=== PATIENT | male | born 1975 | race Two or more races ===

== ENCOUNTER → 2018-06-24 | Outpatient (CLI) | payer OTHER | END | disposition home or self-care (01) | LOC: LAB 08:08 | DX: Z13.0 Encounter for screening for diseases of the blood and blood-forming organs and certain disorders involving the immune mechanism (principal); Z13.220 Encounter for screening for lipoid disorders; Z13.29 Encounter for screening for other suspected endocrine disorder; E55.9 Vitamin D deficiency, unspecified; Z12.5 Encounter for screening for malignant neoplasm of prostate ==

== ENCOUNTER 2018-09-24 07:26 | Outpatient (CLI) | payer OTHER ==
[~2018-09-24] VITALS: Ht 167.6 cm; Wt 105.2 kg
[2018-09-24] MEDS ORDERED: ZYRTEC10 MG PO (09:03)
[2018-09-24] MEDS ORDERED: FLONASE16 GM NASAL (09:03)
== END 2018-09-24 07:45 | disposition home or self-care (01) ==
LOC: OFIC 805 07:26
DX: J34.2 Deviated nasal septum (principal); J31.0 Chronic rhinitis; R06.83 Snoring; E66.8 Other obesity

== ENCOUNTER 2018-09-24 10:00 | Outpatient (CLI) | payer OTHER ==
[~2018-09-24 10:00] MED LIST: FLONASE16 GM NASAL; ZYRTEC10 MG PO
== END 2018-09-24 15:15 | disposition home or self-care (01) ==
LOC: TOM 10:00
DX: J34.2 Deviated nasal septum (principal)

== ENCOUNTER 2018-11-12 07:58 | Outpatient (CLI) | payer OTHER ==
[~2018-11-12] VITALS: Ht 152.4 cm; Wt 105.2 kg
[2018-11-12] MEDS ORDERED: ZYRTEC10 MG PO (10:49)
[2018-11-12] MEDS ORDERED: FLONASE16 GM NASAL (10:49)
== END 2018-11-12 08:15 | disposition home or self-care (01) ==
LOC: OFIC 805 07:58
DX: J34.2 Deviated nasal septum (principal); J31.0 Chronic rhinitis; R06.83 Snoring; E66.9 Obesity, unspecified

== ENCOUNTER 2019-01-14 15:47 | Outpatient (CLI) | payer OTHER | END 2019-01-14 16:02 | disposition home or self-care (01) | LOC: RAD 15:47 | DX: M25.571 Pain in right ankle and joints of right foot (principal); M25.572 Pain in left ankle and joints of left foot; M25.561 Pain in right knee; M25.562 Pain in left knee ==